=== PATIENT | female | born 1990 | race Caucasian/White ===

== ENCOUNTER 2018-02-14 13:07 | Outpatient (RCR) | payer OTHER | END 2018-05-15 | disposition home or self-care (01) | LOC: WSOH | DX: S61.111A Laceration without foreign body of right thumb with damage to nail, initial encounter (principal); W54.0XXA Bitten by dog, initial encounter; Y93.K9 Activity, other involving animal care; Y99.0 Civilian activity done for income or pay; Z23 Encounter for immunization ==